=== PATIENT | male | born 1980 | race African-American/Black ===

== ENCOUNTER 2016-11-17 13:14 | Emergency (ER) | payer BC ==
[~2016-11-17] VITALS: Ht 182.9 cm; Wt 68.0 kg
[~2016-11-17 13:14] MED LIST: BENADRYL25 MG PO; PEPCID20 MG PO; PREDNISONE 20 M20 MG PO
[2016-11-17] MEDS ORDERED: ONDANSETRON HCL4 M2 PO (15:31)
[2016-11-17] MEDS ORDERED: IBUPROFEN 600600 M1 PO (15:31)
[2016-11-17] MEDS ORDERED: NORCO 5-325 TA1 EACH PO (15:36)
[2016-11-17 15:48] VITALS: BP 128/72
== END 2016-11-17 15:49 | disposition home or self-care (01) ==
LOC: ER 13:14
DX: B34.9 Viral infection, unspecified (principal); R05 Cough; F10.99 Alcohol use, unspecified with unspecified alcohol-induced disorder; Z88.9 Allergy status to unspecified drugs, medicaments and biological substances

== ENCOUNTER 2017-02-11 00:55 | Emergency (ER) | payer BC ==
[~2017-02-11] VITALS: Ht 182.9 cm; Wt 67.6 kg
--- NOTE | ~2017-02-11 | EKG ---
[place] [address] [facility] [employer] [address] ELECTROCARDIOGRAM REPORT Name: NAMITA SALAZAR [facility]rest[facility] [id number] Admission: 02/11/17 Attend Phys: Discharge: 02/11/17 Date of : 82 Report #: [id number] THIS REPORT FOR: //name// [facility] ED Test Date: 2017-02-11 Test Time: 01:19:57 Pat Name: NAMITA SALAZAR Department: Room: Gender: M [employer] Mainline: [id number] : 1980 Requested By: Alicia Dyson Order Number: [id number] MD: Silvino Yang Measurements Intervals [place] Rate: 58 P: -19 DC: 136 QRS: 11 QRSD: 86 T: 9 QT: 396 QTc: 389 Interpretive Statements Sinus rhythm Left ventricular hypertrophy ST elev, probable normal early repol pattern No previous ECG available for comparison Electronically Signed On 02-13-2017 13:09:19 CDT by Silvino Yang [email or web address] <ELECTRONICALLY SIGNED> By: Silvino Yang MD 02/13/17 1309 [id number] Silvino Yang MD /KEO
[~2017-02-11 00:55] MED LIST changes: +IBUPROFEN 600600 M1 PO; +NORCO 5-325 TA1 EACH PO; +ONDANSETRON HCL4 M2 PO
[2017-02-11 01:42] LABS: CALCIUM 8.7 mg/dL (8.5-10.1); CREATININE 1.2 mg/dL (0.6-1.3); POTASSIUM 3.9 mmol/L (3.5-5.1)
[2017-02-11 01:47] LABS: ALBUMIN 3.6 g/dL (3.4-5.0); TOTAL BILIRUBIN 0.5 mg/dL (<0.1-1.0); TOTAL PROTEIN 6.8 g/dL (6.4-8.2)
[2017-02-11] MEDS ORDERED: CARAFATE 1 GM TA1 G1 PO (03:03)
[2017-02-11] MEDS ORDERED: ZANTAC 150MG T150 MG PO (03:03)
[2017-02-11 03:20] VITALS: BP 125/78
== END 2017-02-11 03:22 | disposition home or self-care (01) ==
LOC: ER 00:55
PROVIDERS: Emergency Medicine
DX: R10.13 Epigastric pain (principal); F17.210 Nicotine dependence, cigarettes, uncomplicated; F12.10 Cannabis abuse, uncomplicated

== ENCOUNTER 2018-02-25 02:21 | Emergency (ER) | payer BC ==
[~2018-02-25] VITALS: Ht 180.3 cm; Wt 68.0 kg
[~2018-02-25 02:21] MED LIST changes: +CARAFATE 1 GM TA1 G1 PO; +ZANTAC 150MG T150 MG PO
[2018-02-25 03:10] VITALS: BP 119/83
[2018-02-25] MEDS ORDERED: ALEVE220 MG PO (03:28)
== END 2018-02-25 03:49 | disposition home or self-care (01) ==
LOC: ER 02:21
DX: M25.522 Pain in left elbow (principal); F17.210 Nicotine dependence, cigarettes, uncomplicated